=== PATIENT | male | born 1975 | race Caucasian/White ===

== ENCOUNTER 2017-07-04 10:23 | Emergency (ER) | payer SELFPAY ==
[~2017-07-04 10:23] MED LIST: AMOX500 PO; CODACE30 PO; DOXY100 PO; HYDACE5 PO; IBUP600; IBUP600 PO; IBUP800 PO; LORA1 PO; METO10 PO; MIRT15; NAPR220 PO; OXYACE5T PO; PENVK500 PO; QUET100 PO; RXCODACET PO; TOBR.3OPSO OP
== END 2017-07-04 11:12 | disposition left against medical advice (07) ==
LOC: ER 10:23
DX: Z53.21 Procedure and treatment not carried out due to patient leaving prior to being seen by health care provider (principal)

== ENCOUNTER → 2018-07-20 | Outpatient (CLI) | payer OTHER ==
[2018-07-20 13:50] LABS: BASOPHILS ABSOLUTE AUTO 0.05 K/mm3 (0.00-0.23); BASOPHILS PERCENT AUTO 1 % (0-2); EOSINOPHILS ABSOLUTE AUTO 0.13 K/mm3 (0.00-0.68); EOSINOPHILS PERCENT AUTO 2 % (0-6); Hematocrit 46.1 % (37.0-53.0); Hemoglobin 15.5 g/dL (13.5-17.5); IMMATURE GRAN ABSOLUTE AUTO 0.02 K/mm3 (0.00-0.10); IMMATURE GRAN PERCENT AUTO 0 % (0-1); LYMPHOCYTES ABSOLUTE AUTO 2.59 K/mm3 (0.84-5.20); LYMPHOCYTES PERCENT AUTO 30 % (21-46); MONOCYTES ABSOLUTE AUTO 0.59 K/mm3 (0.16-1.47); MONOCYTES PERCENT AUTO 7 % (4-13); Mean Corpuscular HGB Conc 33.6 g/dL (31.5-36.5); Mean Corpuscular Volume 95 fL (80-100); Mean Platelet Volume 10.4 fL (9.1-12.4); NEUTROPHILS ABSOLUTE AUTO 5.17 K/mm3 (1.96-9.15); NEUTROPHILS PERCENT AUTO 61 % (41-73); Platelet Count 293 K/mm3 (150-400); RDW Coefficient Variation 11.9 % (11.7-14.2); RDW Standard Deviation 41.6 fL (35.1-46.3); Red Blood Cell Count 4.85 M/mm3 (4.30-5.90); White Blood Cell Count 8.55 K/mm3 (4.00-11.30)
[2018-07-20 14:26] LABS: Alanine Aminotransfer (ALT/SGP 33 U/L (12-78); Albumin, Blood 4.1 g/dL (3.4-5.0); Albumin/Globulin Ratio 1.2 (0.8-1.8); Alk Phos 67 U/L (50-136); Anion Gap 5 mmol/L (6-16); Aspartate Aminotrans (AST/SGOT 24 U/L (12-37); Bilirubin, Total 0.4 mg/dL (0.1-1.0); Blood Urea Nitrogen 13 mg/dL (8-24); Bun/Creatinine Ratio 13.1 (12.0-20.0); CHOL/HDL RATIO 3.7; CO2, Blood 28 mmol/L (21-32); Calcium, Blood 8.9 mg/dL (8.5-10.1); Chloride, Blood 108 mmol/L (98-108); Cholesterol 190 mg/dL (50-200); Creatinine, Blood 0.99 mg/dL (0.60-1.20); Free Thyroxine 1.02 ng/dL (0.70-1.60); Globulin, Blood 3.4 g/dL (2.2-4.0); Glomerular Filtration Rate >60 (60-); Glucose, Blood 72 mg/dL (70-99); HDL Cholesterol 51 mg/dL (>39); LDL/HDL RATIO 2.4; Low Density Lipoprotein Chol 125 mg/dL (0-110); Potassium, Blood 4.7 mmol/L (3.5-5.5); Sodium, Blood 141 mmol/L (136-145); Total Protein, Blood 7.5 g/dL (6.4-8.2); Triglycerides 72 mg/dL (30-160); Very Low Density Lipoprot Chol 14 mg/dL (6-32)
== END | disposition home or self-care (01) ==
LOC: LAB 09:53 → LAB SHORT 09:53
PROVIDERS: Hospitalist
DX: Z00.00 Encounter for general adult medical examination without abnormal findings (principal)
CPT/HCPCS: 80053; 80061; 84439; 84443; 85025

== ENCOUNTER → 2020-09-09 | Outpatient (CLI) | payer OTHER | END | disposition home or self-care (01) | LOC: LAB SHORT 09:13 | DX: M79.89 Other specified soft tissue disorders (principal) | CPT/HCPCS: 88305 ==

== ENCOUNTER 2022-01-11 10:05 | Emergency (ER) | payer OTHER ==
[~2022-01-11] VITALS: Ht 180.3 cm; Wt 68.0 kg
== END 2022-01-11 11:31 | disposition home or self-care (01) ==
LOC: ER 10:05
DX: M54.50 Low back pain, unspecified (principal); X50.0XXA Overexertion from strenuous movement or load, initial encounter; Z88.1 Allergy status to other antibiotic agents; Z98.1 Arthrodesis status
CPT/HCPCS: A9270; J1885

== ENCOUNTER 2022-01-14 07:19 | Emergency (ER) | payer OTHER ==
[~2022-01-14] VITALS: Ht 172.7 cm; Wt 70.3 kg
== END 2022-01-14 13:29 | disposition home or self-care (01) ==
LOC: ER 07:19
DX: M51.16 Intervertebral disc disorders with radiculopathy, lumbar region (principal); F17.210 Nicotine dependence, cigarettes, uncomplicated; Z88.1 Allergy status to other antibiotic agents; Z98.1 Arthrodesis status
CPT/HCPCS: 72148; A9270; J1885

== ENCOUNTER → 2023-01-30 | Outpatient (CLI) | payer SELFPAY | END | disposition home or self-care (01) | LOC: LAB 14:41 → LAB SHORT 14:41 | DX: M79.675 Pain in left toe(s) (principal) | CPT/HCPCS: 84550 ==

== ENCOUNTER → 2023-03-28 | Outpatient (CLI) | payer SELFPAY ==
[2023-03-29 16:37] LABS: U Amphetamine Screen Not Detected; U Barbituate Screen Not Detected; U Cannabinoids Screen DETECTED; U Methamphetamine Screen Not Detected
[2023-03-29 16:38] LABS: U Benzodiazapine Screen Not Detected; U Buprenorphine Screen Not Detected; U Cocaine Screen Not Detected; U Methadone Screen Not Detected; U Opiates Screen Not Detected; U Oxycodone Screen Not Detected; U Phencyclidine Screen Not Detected; U Propoxyphene Screen Not Detected
== END | disposition home or self-care (01) ==
LOC: LAB SHORT 17:15 → LAB 17:15
PROVIDERS: Hospitalist
DX: M51.16 Intervertebral disc disorders with radiculopathy, lumbar region (principal)

== ENCOUNTER 2023-05-14 10:35 | Emergency (ER) | payer OTHER ==
[~2023-05-14] VITALS: Ht 182.9 cm; Wt 68.0 kg
[2023-05-14 10:43] VITALS: BP 128/78
== END 2023-05-14 14:00 | disposition home or self-care (01) ==
LOC: ER 10:35
DX: S13.4XXA Sprain of ligaments of cervical spine, initial encounter (principal); R91.1 Solitary pulmonary nodule; V49.60XA Unspecified car occupant injured in collision with unspecified motor vehicles in traffic accident, initial encounter; Z88.1 Allergy status to other antibiotic agents; F17.210 Nicotine dependence, cigarettes, uncomplicated
CPT/HCPCS: 72125; 99284-25

== ENCOUNTER 2024-03-14 06:29 | Emergency (ER) | payer SELFPAY ==
[~2024-03-14] VITALS: Ht 182.9 cm; Wt 68.0 kg
[2024-03-14 07:08] VITALS: BP 118/81
[2024-03-14] MEDS ORDERED: Fluorescein Sod 1MG Opth Strips BOTHEYES ONE (07:15)
[2024-03-14] MEDS ORDERED: Tetracaine HCl/Pf 0.5% Opth Soln 4 ml BOTHEYES ONE (07:15)
[2024-03-14] MEDS ORDERED: Floxin10 ML RIGHTEYE (07:38)
[2024-03-14] MEDS ORDERED: KETOROLAC TROMET5 ML TOP (07:38)
== END 2024-03-14 08:35 ==
LOC: ER 06:29
DX: S05.01XA Injury of conjunctiva and corneal abrasion without foreign body, right eye, initial encounter (principal); H10.211 Acute toxic conjunctivitis, right eye; F17.210 Nicotine dependence, cigarettes, uncomplicated; X58.XXXA Exposure to other specified factors, initial encounter; Z88.1 Allergy status to other antibiotic agents
CPT/HCPCS: 99282; A9270